=== PATIENT | female | born 1980 | race Caucasian/White ===

== ENCOUNTER 2020-08-25 05:55 | Emergency (ER) | payer BC, MEDICARE ==
[~2020-08-25] VITALS: Ht 165.1 cm; Wt 69.5 kg
[2020-08-25 06:02] VITALS: Ht 165.1 cm; Wt 69.5 kg
[2020-08-25] MEDS ORDERED: PROZAC40 MG (06:05)
[2020-08-25] MEDS ORDERED: TIROSINT50 MCG PO (06:05)
[2020-08-25] MEDS ORDERED: MINIPRESS 5 MG C5 MG PO (06:06)
[2020-08-25] MEDS ORDERED: ADDERALL XR 3030 MG PO (06:06)
[2020-08-25] MEDS ORDERED: ADDERALL 10 MG10 MG PO (06:06)
[2020-08-25] MEDS ORDERED: KLONOPIN1 MG PO (06:07)
[2020-08-25] MEDS ORDERED: FLAGYL500 MG PO (07:19)
[2020-08-25] MEDS ORDERED: LEVOFLOXACIN500 MG PO (07:19)
[2020-08-25] MEDS ORDERED: HYDROCODON-ACE1 EAC7 PO (07:33)
[2020-08-25 07:50] VITALS: BP 146/85
== END 2020-08-25 07:55 | disposition home or self-care (01) ==
LOC: D.ER 05:55
DX: S51.851A Open bite of right forearm, initial encounter (principal); W54.0XXA Bitten by dog, initial encounter; Y93.9 Activity, unspecified; Y92.9 Unspecified place or not applicable; S57.81XA Crushing injury of right forearm, initial encounter